=== PATIENT | male | born 1985 | race Caucasian/White ===

== ENCOUNTER 2017-11-04 06:25 | Emergency (ER) | payer BC, MEDICAID ==
[2017-11-04] MEDS ORDERED: Ketorolac 60 MG/2 ML SDV IM ONE (07:15)
--- NOTE | 2017-11-04 07:19 | EDM.PDOC ---
ED HPI GENERAL MEDICAL PROBLEM - General Chief Complaint: General Stated Complaint: RT SHOULDER PAIN Time Seen by Provider: 11/04/17 07:00 Source of Information: Reports: Patient History Limitations: Reports: No Limitations - History of Present Illness INITIAL COMMENTS - FREE TEXT/NARRATIVE: 32-year-old male with right-sided back and shoulder discomfort for the past 3 weeks, very anxious in presentation. Describes his pain localized on the inside of his right shoulder blade for the past 2-3 weeks. No known injury, he's currently not working. He is acting somewhat agitated, slurred speech and he readily admits that he does methamphetamine. His presentation does seem exaggerated. Onset: Unknown/Unsure (Symptoms for at least 2-3 weeks) Location: Reports: Upper Extremity, Right Severity: Moderate Worsens with: Reports: Movement Associated Symptoms: Reports: No Other Symptoms Right Shoulder Pain Score (Numeric/FACES): 8 - Related Data Allergies Allergy/AdvReac Type Severity Reaction Status Date / Time No Known Allergies Allergy Verified 11/04/17 06:33 Home Meds: Home Meds NK [No Known Home Meds] 11/04/17 [History] Past Medical History HEENT History: Reports: Impaired Vision Musculoskeletal History: Reports: Fracture - Infectious Disease History Infectious Disease History: Reports: Chicken Pox Social & Family History - Tobacco Use Smoking Status *Q: Current Every Day Smoker Years of Tobacco use: 15 Packs/Tins Daily: 0.5 - Caffeine Use Caffeine Use: Reports: Coffee, Energy Drinks, Soda - Recreational Drug Use Recreational Drug Use: Yes Drug Use in Last 12 Months: Yes Recreational Drug Type: Reports: Marijuana/Hashish, Methamphetamine Recreational Drug Use Frequency: Daily ED ROS GENERAL - Review of Systems Review Of Systems: See Below Constitutional: Denies: Fever, Chills Respiratory: Denies: Shortness of Breath Cardiovascular: Denies: Chest Pain GI/Abdominal: Denies: Abdominal Pain, Nausea, Vomiting Skin: Denies: Rash (Denies rash over painful area) Neurological: Reports: Paresthesia (No arm paresthesias) ED EXAM, GENERAL - Physical Exam Exam: See Below Exam Limited By: No Limitations General Appearance: Alert, Anxious Head: Atraumatic Neck: Normal Inspection, Non-Tender Respiratory/Chest: No Respiratory Distress Extremities: Other (Exam of the right and left shoulders and upper back reveals point tenderness to palpation across the rhomboids on the right side. Patient is somewhat dramatic with even light to moderate palpation is causing him to wince and jerk around on the exam bed. He does have full range of motion actively but it appears to be painful to abduct the arm above 90.) Skin Exam: Warm, Dry, Erythema (Patient appears to have sunburn on his face and neck but he denies any recent increased exposure) Course - Vital Signs Last Recorded V/S: Last Vital Signs Temp 97.7 F 11/04/17 06:42 Pulse 98 11/04/17 06:42 Resp 20 11/04/17 06:42 BP 130/99 H 11/04/17 06:42 Pulse Ox 95 11/04/17 06:42 - Orders/Labs/Meds Meds: Medications Discontinued Medications Generic Name Dose Route Start Last Admin Trade Name Sd PRN Reason Stop Dose Admin Ketorolac Tromethamine 60 mg 11/04/17 07:15 11/04/17 07:19 Toradol IM 11/04/17 07:16 60 mg ONETIME ONE Administration - Re-Assessments/Exams Free Text/Narrative Re-Assessment/Exam: 11/04/17 07:18 This patient has an isolated rhomboid muscle strain or pain without known cause. He also appears to be hypersensitive possibly to recent or current methamphetamine use. He'll receive 60 mg of Toradol IM, and I will give him 15 Flexeril, 10 mg to take up to 3 times a day but he needs to resume regular activity as soon as possible and avoid methamphetamine. Rechecking at the clinic in 5-7 days may be worthwhile for physical therapy consultation if not improving. Departure - Departure Time of Disposition: 07:39 Disposition: Home, Self-Care 01 Condition: Good Clinical Impression: Rhomboid muscle strain Qualifiers: Encounter type: initial encounter Qualified Code(s): S29.012A - Strain of muscle and tendon of back wall of thorax, initial encounter - Discharge Information Instructions: Muscle Strain, [id number] Referrals: PCP,None [Primary Care Provider] - Forms: ED Department Discharge Care Plan Goals: Stay active, use muscle relaxers up to 3 times daily especially when trying to get rest, and a regular dose of ibuprofen or naproxen may help. Recheck at the clinic in 5-7 days if not improving satisfactorily to arrange a physical therapy consultation.
== END 2017-11-04 07:36 | disposition home or self-care (01) ==
LOC: JP.ED 06:25
DX: S29.012A Strain of muscle and tendon of back wall of thorax, initial encounter (principal); F17.210 Nicotine dependence, cigarettes, uncomplicated; X58.XXXA Exposure to other specified factors, initial encounter
CPT/HCPCS: 96372; 99283; J1885

== ENCOUNTER 2020-03-23 21:27 | Emergency (ER) | payer MEDICAID, OTHER ==
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
== END 2020-03-23 22:22 | disposition home or self-care (01) ==
LOC: JP.ED 21:27
DX: K04.7 Periapical abscess without sinus (principal); T21.24XA Burn of second degree of lower back, initial encounter; F17.210 Nicotine dependence, cigarettes, uncomplicated; Z90.89 Acquired absence of other organs
CPT/HCPCS: 99282

== ENCOUNTER 2022-02-08 21:17 | Emergency (ER) | payer MEDICAID ==
[2022-02-08] MEDS ORDERED: LORazepam 2 MG/ML SDV IM STA (21:37)
[2022-02-08] MEDS ORDERED: Haloperidol Lactate 5 MG/ML SDV IM ONE (21:37)
[2022-02-08] MEDS ORDERED: diphenhydrAMINE 50 MG/ML SDV IM ONE (21:37)
[2022-02-08 22:05] LABS: ESTIMATED GFR 89 mL/min (>60)
[2022-02-09] MEDS ORDERED: diphenhydrAMINE 50 MG/ML SDV IM ONE (00:58)
[2022-02-09] MEDS ORDERED: Haloperidol Lactate 5 MG/ML SDV IM ONE (00:58)
[2022-02-09] MEDS ORDERED: LORazepam 2 MG/ML SDV IM STA (00:58)
== END 2022-02-09 14:59 ==
LOC: JP.ED 21:17
DX: F15.959 Other stimulant use, unspecified with stimulant-induced psychotic disorder, unspecified (principal); F12.10 Cannabis abuse, uncomplicated; F17.210 Nicotine dependence, cigarettes, uncomplicated; Z90.49 Acquired absence of other specified parts of digestive tract
CPT/HCPCS: 36415; 80053; 80305; 80307; 81001; 85025; 96372; 99285; J1200; J1630; J2060

== ENCOUNTER 2022-05-07 11:33 | Emergency (ER) | payer MEDICAID | END 2022-05-07 12:18 | disposition home or self-care (01) | LOC: JP.ED 11:33 | DX: H60.92 Unspecified otitis externa, left ear (principal) | CPT/HCPCS: 99282 ==